=== PATIENT | female | born 1945 | race African-American/Black ===

== ENCOUNTER 2025-07-09 23:07 | Inpatient (IN) | payer MEDICARE ==
[2025-07-09] MEDS ORDERED: Ondansetron PF 4 MG/2 ML Vial IVP PRN (23:42)
[2025-07-10 00:44] VITALS: BMI 31.0
[2025-07-10] MEDS ORDERED: Nitroglycerin 0.4 MG TAB (25 Tab Bottle) SL PRN (00:56)
[2025-07-10 01:26] LABS: Hematocrit 38.8 % (36.0-47.0); Hemoglobin 12.3 g/dL (12.0-16.0); Platelet Count 232 10x3/uL (130-400)
[2025-07-10] MEDS: Heparin 10,000 UNITS/ 10 ML VIAL SLOW IVP SCH (02:10)
[2025-07-10] MEDS: Acetaminophen 325 MG TAB PO PRN (02:26)
[2025-07-10 04:44] LABS: #Basophils 0.04 10x3/uL (0.0-0.2); #Eosinophils 0.07 10x3/uL (0.0-0.7); #Monocytes 0.92 10x3/uL (0.11-0.59); #Neutrophils 5.51 10x3/uL (1.40-6.50); %Basophils 0.4 % (0.0-1.0); %Eosinophils 0.7 % (0.0-10.0); %Lymphocytes 38.5 % (21.0-51.0); %Monocytes 8.6 % (0.0-10.0); %Neutrophils 51.6 % (42.0-75.0); Hematocrit 41.0 % (36.0-47.0); Hemoglobin 12.8 g/dL (12.0-16.0); Mean Corpuscular Hemoglobin 27.1 pg (27.0-31.0); Mean Corpuscular Volume 86.9 fL (78.0-98.0); Platelet Count 220 10x3/uL (130-400); Red Blood Cell (RBC) Count 4.72 mill/uL (4.20-5.40); White Blood Cell (WBC) Count 10.66 10x3/uL (4.8-10.8)
[2025-07-10 05:06] LABS: Anion Gap 13 mmol/L (10-20); BUN (Urea Nitrogen) 7 mg/dL (9.8-20.1); Calc. Creatinine Clearance 74 mL/min (70-130); Calcium 9.1 mg/dL (7.8-10.44); Carbon Dioxide 26 mmol/L (23-31); Chloride 102 mmol/L (98-107); Glucose 104 mg/dL (83-110); Potassium 2.9 mmol/L (3.5-5.1); Sodium 138 mmol/L (136-145)
[2025-07-10 08:54] LABS: PTT 217.6 sec (22.9-36.1)
[2025-07-10] MEDS ORDERED: Ketorolac Tromethamine 30 MG (1 mL) VIAL IVP SCH (12:00)
[2025-07-10] MEDS: Fioricet 325/50/40 mg Tablet PO PRN (17:18)
[2025-07-10 19:31] LABS: Magnesium 2.1 mg/dL (1.6-2.6)
[2025-07-10] MEDS: Acetaminophen/Codeine 30-300mg Tablet PO PRN (21:22)
[2025-07-11 01:43] LABS: #Basophils 0.04 10x3/uL (0.0-0.2); #Eosinophils 0.07 10x3/uL (0.0-0.7); #Monocytes 0.88 10x3/uL (0.11-0.59); #Neutrophils 5.41 10x3/uL (1.40-6.50); %Basophils 0.4 % (0.0-1.0); %Eosinophils 0.7 % (0.0-10.0); %Lymphocytes 33.3 % (21.0-51.0); %Monocytes 9.1 % (0.0-10.0); %Neutrophils 56.3 % (42.0-75.0); Hematocrit 35.8 % (36.0-47.0); Hemoglobin 11.2 g/dL (12.0-16.0); Mean Corpuscular Hemoglobin 26.8 pg (27.0-31.0); Mean Corpuscular Volume 85.6 fL (78.0-98.0); Platelet Count 201 10x3/uL (130-400); Red Blood Cell (RBC) Count 4.18 mill/uL (4.20-5.40); White Blood Cell (WBC) Count 9.63 10x3/uL (4.8-10.8)
[2025-07-11 03:06] LABS: Anion Gap 13 mmol/L (10-20); BUN (Urea Nitrogen) 6 mg/dL (9.8-20.1); Calc. Creatinine Clearance 80 mL/min (70-130); Calcium 8.4 mg/dL (7.8-10.44); Carbon Dioxide 21 mmol/L (23-31); Cardiac Risk 2.4 (Less than 4.5); Chloride 105 mmol/L (98-107); Cholesterol 154 mg/dl (< 200 Desired); Glucose 114 mg/dL (83-110); HDL Cholesterol 63 mg/dL (>60 Neg Risk); LDL Cholesterol, Calculated 71 mg/dL; Potassium 3.6 mmol/L (3.5-5.1); Sodium 135 mmol/L (136-145); Triglycerides 100 mg/dL (Less than 150)
[2025-07-11] MEDS ORDERED: CATH FS SCH (08:00)
[2025-07-11] MEDS: Carvedilol 6.25 MG TAB PO SCH (08:51)
[2025-07-11] MEDS: Aspirin 81 mg Enteric Coated Tablet PO SCH (08:51)
[2025-07-11] MEDS: Sacubitril 24MG/Valsartan 26 MG TAB PO SCH (20:50)
[2025-07-12 01:56] LABS: Hematocrit 41.0 % (36.0-47.0); Hemoglobin 12.8 g/dL (12.0-16.0); Platelet Count 229 10x3/uL (130-400)
[2025-07-12 05:31] LABS: #Basophils 0.04 10x3/uL (0.0-0.2); #Eosinophils 0.17 10x3/uL (0.0-0.7); #Monocytes 0.68 10x3/uL (0.11-0.59); #Neutrophils 3.55 10x3/uL (1.40-6.50); %Basophils 0.5 % (0.0-1.0); %Eosinophils 2.1 % (0.0-10.0); %Lymphocytes 45.1 % (21.0-51.0); %Monocytes 8.4 % (0.0-10.0); %Neutrophils 43.7 % (42.0-75.0); Hematocrit 40.8 % (36.0-47.0); Hemoglobin 12.6 g/dL (12.0-16.0); Mean Corpuscular Hemoglobin 26.9 pg (27.0-31.0); Mean Corpuscular Volume 87.2 fL (78.0-98.0); Platelet Count 218 10x3/uL (130-400); Red Blood Cell (RBC) Count 4.68 mill/uL (4.20-5.40); White Blood Cell (WBC) Count 8.13 10x3/uL (4.8-10.8)
[2025-07-12 05:55] LABS: Anion Gap 12 mmol/L (10-20); BUN (Urea Nitrogen) 7 mg/dL (9.8-20.1); Calc. Creatinine Clearance 79 mL/min (70-130); Calcium 8.8 mg/dL (7.8-10.44); Carbon Dioxide 25 mmol/L (23-31); Chloride 110 mmol/L (98-107); Glucose 92 mg/dL (83-110); Potassium 3.7 mmol/L (3.5-5.1); Sodium 143 mmol/L (136-145)
[2025-07-12] MEDS ORDERED: Heparin 10,000 UNITS/ 10 ML VIAL ONE (08:07)
[2025-07-12] MEDS ORDERED: Adenosine 6 mg (2 mL) VIAL ONE (08:07)
[2025-07-12] MEDS ORDERED: Nitroglycerin 50 MG/250 ML BOT 0 ML ONE (08:08)
[2025-07-12] MEDS ORDERED: Lidocaine 1% (PF) 30 ML VIAL ONE (08:21)
[2025-07-12] MEDS ORDERED: FLU (Fluad Triv) 25-26 (65UP)PF 45 MCG/0.5 ML Syringe IM ONE (09:00)
[2025-07-12] MEDS ORDERED: Iopamidol 370 76% 100 ML VIAL ONE (11:47)
[2025-07-13 07:09] LABS: #Basophils 0.05 10x3/uL (0.0-0.2); #Eosinophils 0.25 10x3/uL (0.0-0.7); #Monocytes 0.56 10x3/uL (0.11-0.59); #Neutrophils 2.79 10x3/uL (1.40-6.50); %Basophils 0.7 % (0.0-1.0); %Eosinophils 3.6 % (0.0-10.0); %Lymphocytes 46.8 % (21.0-51.0); %Monocytes 8.1 % (0.0-10.0); %Neutrophils 40.7 % (42.0-75.0); Hematocrit 40.7 % (36.0-47.0); Hemoglobin 12.4 g/dL (12.0-16.0); Mean Corpuscular Hemoglobin 27.0 pg (27.0-31.0); Mean Corpuscular Volume 88.7 fL (78.0-98.0); Platelet Count 211 10x3/uL (130-400); Red Blood Cell (RBC) Count 4.59 mill/uL (4.20-5.40); White Blood Cell (WBC) Count 6.88 10x3/uL (4.8-10.8)
[2025-07-13 07:30] LABS: Anion Gap 11 mmol/L (10-20); BUN (Urea Nitrogen) Less than 4 mg/dL (9.8-20.1); Calc. Creatinine Clearance 81 mL/min (70-130); Calcium 8.8 mg/dL (7.8-10.44); Carbon Dioxide 22 mmol/L (23-31); Chloride 113 mmol/L (98-107); Glucose 84 mg/dL (83-110); Potassium 3.8 mmol/L (3.5-5.1); Sodium 142 mmol/L (136-145)
[2025-07-13] MEDS: Sacubitril 24MG/Valsartan 26 MG TAB PO SCH (09:08)
[2025-07-13] MEDS: Dapagliflozin Propanediol 10 MG TAB PO SCH (09:08)
[2025-07-13] MEDS: Heparin 5,000 UNITS/ML VIAL SC SCH (16:03)
[2025-07-14 01:19] LABS: Hematocrit 41.0 % (36.0-47.0); Hemoglobin 12.6 g/dL (12.0-16.0); Platelet Count 226 10x3/uL (130-400)
[2025-07-14 05:34] LABS: #Basophils 0.03 10x3/uL (0.0-0.2); #Eosinophils 0.25 10x3/uL (0.0-0.7); #Monocytes 0.66 10x3/uL (0.11-0.59); #Neutrophils 2.67 10x3/uL (1.40-6.50); %Basophils 0.5 % (0.0-1.0); %Eosinophils 3.9 % (0.0-10.0); %Lymphocytes 43.1 % (21.0-51.0); %Monocytes 10.4 % (0.0-10.0); %Neutrophils 41.9 % (42.0-75.0); Hematocrit 41.9 % (36.0-47.0); Hemoglobin 12.8 g/dL (12.0-16.0); Mean Corpuscular Hemoglobin 26.9 pg (27.0-31.0); Mean Corpuscular Volume 88.2 fL (78.0-98.0); Platelet Count 207 10x3/uL (130-400); Red Blood Cell (RBC) Count 4.75 mill/uL (4.20-5.40); White Blood Cell (WBC) Count 6.36 10x3/uL (4.8-10.8)
[2025-07-14 05:59] LABS: Anion Gap 11 mmol/L (10-20); BUN (Urea Nitrogen) 5 mg/dL (9.8-20.1); Calc. Creatinine Clearance 76 mL/min (70-130); Calcium 9.4 mg/dL (7.8-10.44); Carbon Dioxide 26 mmol/L (23-31); Chloride 107 mmol/L (98-107); Glucose 93 mg/dL (83-110); Potassium 3.8 mmol/L (3.5-5.1); Sodium 140 mmol/L (136-145)
[2025-07-14] MEDS: Aspirin 325 MG TAB PO SCH (08:54)
[2025-07-14 16:17] VITALS: BP 100/54; TEMP 97.9
== END 2025-07-14 17:05 | disposition home or self-care (01) | DRG 287 ==
LOC: 2NO 23:07
PROVIDERS: ADMIT Internal Medicine; ATTEND Internal Medicine
PROC: 4A023N7 Measurement of Cardiac Sampling and Pressure, Left Heart, Percutaneous Approach (ICD-10-PCS; principal; 2025-07-12)
PROC: 3E02340 Introduction of Influenza Vaccine into Muscle, Percutaneous Approach (ICD-10-PCS; 2025-07-12)
DX: I51.81 Takotsubo syndrome (principal); I10 Essential (primary) hypertension; G43.909 Migraine, unspecified, not intractable, without status migrainosus; M41.9 Scoliosis, unspecified; H01.9 Unspecified inflammation of eyelid; M54.9 Dorsalgia, unspecified; G89.29 Other chronic pain; E87.6 Hypokalemia; Z88.6 Allergy status to analgesic agent; Z88.8 Allergy status to other drugs, medicaments and biological substances; Z90.710 Acquired absence of both cervix and uterus; Z98.49 Cataract extraction status, unspecified eye; Z98.51 Tubal ligation status; Z23 Encounter for immunization
CPT/HCPCS: 36415; 78452; 80048; 80061; 83036; 83735; 84484; 85014; 85018; 85025; 85049; 85730; 93017; 93306; 93458; 93798; 94760; A9502; C1769; C1887; C1894; J0153; J1644; J2003; J2250; J2785; J3010; Q9967